=== PATIENT | female | born 1975 | race Caucasian/White ===

== ENCOUNTER 2019-01-02 11:14 | Outpatient (CLI) | payer OTHER ==
[2019-01-02 12:46] LABS: Hemoglobin 11.2 g/dL (12.0-16.0); Mean Corpuscular HGB CONC 32.1 g/dL (32.0-36.0); Mean Corpuscular Hemoglobin 25.2 pg (27.0-31.0); Mean Corpuscular Volume 78.7 fL (78.0-98.0); Mean Platelet Volume 11.8 fL (7.4-10.4); Platelet Count 198 thou/uL (130-400); RBC Distribution Width 17.7 % (11.5-14.5); Red Blood Cell (RBC) Count 4.43 mill/uL (4.20-5.40); White Blood Cell (WBC) Count 6.9 thou/uL (4.8-10.8)
[2019-01-02 13:13] LABS: PTT 31.7 SEC (22.9-36.1); Prothrombin Time 12.8 SEC (12.0-14.7)
[2019-01-02 13:16] LABS: BHCG - Serum Negative (NEGATIVE); Pregs Control Background? CLEAR/WHITE (CLR/WHITE); Pregs Control Bar Appear? YES (CONTROL BAR)
[2019-01-02 13:35] LABS: Anion Gap 12 mmol/L (10-20); BUN (Urea Nitrogen) 19 mg/dL (7.0-18.7); Calc. Creatinine Clearance 0 mL/min (70-130); Carbon Dioxide 23 mmol/L (22-29); Chloride 105 mmol/L (98-107); Estimated GFR-MDRD 73; Glucose 82 mg/dL (70-105); Potassium 4.3 mmol/L (3.5-5.1); Sodium 136 mmol/L (136-145)
== END 2019-01-02 11:15 | disposition home or self-care (01) ==
LOC: LABBT 11:14
PROVIDERS: ATTEND Internal Medicine Cardiovascular Disease
DX: Z01.818 Encounter for other preprocedural examination (principal); I47.1 Supraventricular tachycardia
CPT/HCPCS: 80048; 84703; 85027; 85610; 85730; 93005; 93010

== ENCOUNTER 2019-01-09 08:20 | Observation (INO) | payer OTHER ==
[2019-01-02 11:25] VITALS: BMI 31.3
[2019-01-09] MEDS ORDERED: Lidocaine 1% PF 5 ML VIAL ONE (11:45)
[2019-01-09] MEDS ORDERED: PROPOFOL 200 MG/20 ML VIAL ONE (11:45)
[2019-01-09] MEDS ORDERED: Heparin 30,000 units/30 ml VIAL ONE (11:45)
[2019-01-09] MEDS ORDERED: PHENYLEPHRINE-NS 100 MCG/ML 10 ML SYRINGE ONE (11:45)
[2019-01-09] MEDS ORDERED: Heparin 25,000 units/D5W 500 ML ONE (12:17)
[2019-01-09] MEDS ORDERED: Heparin 10,000 UNITS/1 ML VIAL ONE ×3 (12:17→13:49)
[2019-01-09] MEDS ORDERED: Lidocaine 1% (PF) 30 ML VIAL ONE (12:24)
[2019-01-09] MEDS ORDERED: Fentanyl 100 MCG/2 ML VIAL ONE (12:31)
[2019-01-09] MEDS ORDERED: Midazolam HCl 2 mg/2 ml Vial ONE (12:31)
[2019-01-09] MEDS ORDERED: Isoproterenol 0.2 MG/1 ML AMP ONE (14:06)
[2019-01-09] MEDS ORDERED: Propofol 500 MG/50 ML VIAL ONE (14:19)
[2019-01-09] MEDS ORDERED: Protamine Sulfate 50 MG/5 ML VIAL ONE (14:53)
[2019-01-09] MEDS ORDERED: Acetaminophen/Codeine 30-300mg Tablet PO PRN ×2 (15:45)
--- NOTE | 2019-01-09 15:51 | OP ---
DATE OF PROCEDURE: 01/09/2019 PROCEDURE PERFORMED: Electrophysiology study and radiofrequency ablation. REASON FOR PROCEDURE: Ms. Patino is a 43-year-old woman with history of recurrent palpitations. EKG documented supraventricular tachycardia and she is here for EP study and ablation procedure. DESCRIPTION OF PROCEDURE: The patient received deep sedation by Anesthesia specialist. After adequate level of sedation achieved, the left and right femoral veins were prepped, draped, and anesthetized using subcutaneous lidocaine. On the left side, a 6 and 8-Eritrean sheath was used to advance an octapolar and decapolar catheter to the right atrium, right ventricle, His bundle, and CS position. Pacing mapping and recording were performed in each location with the following findings. Baseline rhythm was sinus rhythm at cycle length of 885 milliseconds, GA 123 milliseconds, QRS 56 milliseconds, QT 371 milliseconds, AH 45 milliseconds, HV 63 milliseconds. AV Wenckebach cycle length was measured at 300 milliseconds. Retrograde Wenckebach cycle was 340 milliseconds. With rapid RV pacing eccentric atrial activation seen suggestive of accessory pathway. Also with burst atrial and ventricular pacing, we were able to induce a narrow complex supraventricular tachycardia with excellent VA conduction. Ventricular overdrive pacing terminated the arrhythmias, but clearly the activation pattern was consistent with AV reentrant tachycardia utilizing an accessory pathway adjacent to the CS 3, 4 electrodes. At that point, the right femoral vein was also accessed under ultrasound guidance and 11-Eritrean sheath as well as SL1 sheath was introduced. An intracardiac echo probe was advanced to the right atrium to monitor pericardial space catheter manipulation and transseptal procedure throughout the case. After IV heparin was administered, which was also given in bolus and drip form to keep ACT over 350, a transseptal puncture was performed under intracardiac echocardiogram as well as fluoroscopic guidance. Through the SL1 sheath, a ThermoCool SFST catheter was advanced to the left atrium. 3D map of the left atrium was obtained and SVT as well. The earliest activation was again measured in the mid posterolateral area of the mitral valve annulus at the earliest activation, also where accessory pathway potential were present. Radiofrequency application was delivered, total of one ablation lesion at 1 minute and 8 seconds were delivered. The first and second eccentric VA conduction seized and normal VA conduction with intermittent VA block was noted. Following that, burst ventricular pacing did not reinduce the arrhythmia and Isuprel was initiated. RV pacing showed central retrograde atrial activation. VA block was noted about 250 milliseconds. No eccentric conduction was seen anymore. The SVT was not re-inducible. Throughout the case, catheter manipulation and burst atrial pacing did induce atrial fibrillation as well. The patient required occasional cardioversion. In the end of the case, on Isuprel, the AV Wenckebach cycle was down to 230 milliseconds and we were not able to induce neither SVT or atrial fibrillation. The intracardiac echo probe did not reveal effusion. Cardiac silhouette did not change. The catheter was removed from the left atrium and the body. The protamine was administered to reverse heparin effect. Basket closure was done. CONCLUSION: 1. 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 2. Radiofrequency ablation from terminated eccentric VA conduction and also made the SVC non-inducible. 3. Atrial fibrillation noted throughout the case repeatedly which persisted and required cardioversion, but was not re-inducible end of the case. 4. Normal sinus and AV juliette function and His-Purkinje function noted. 5. No evidence of dual AV juliette physiology. 6. No additional pathways are detected. PLAN: Taper off AV juliette agents, low-dose aspirin. Monitor for recurrent atrial arrhythmias. Job ID: [id number] [facility]
[2019-01-09] MEDS ORDERED: Bupropion 150 MG XL TAB PO SCH (21:00)
[2019-01-09] MEDS ORDERED: Multivit, Therapeutic 1 TAB PO SCH (21:00)
[2019-01-10 08:23] VITALS: BP 108/62; TEMP 98.5
--- NOTE | 2019-01-10 17:31 | EKG ---
Test Reason : Blood Pressure : / mmHG Vent. Rate : 063 BPM Atrial Rate : 063 BPM P-R Int : 140 ms QRS Dur : 086 ms QT Int : 430 ms P-R-T Axes : 052 000 007 degrees QTc Int : 440 ms Normal sinus rhythm with sinus arrhythmia T wave abnormality, consider anterior ischemia Abnormal ECG Confirmed by TJ PEDROZA ([id number]) on 01/10/2019 5:30:53 PM Referred By: Confirmed By:TJ PEDROZA
--- NOTE | 2019-01-10 17:40 | EKG ---
Test Reason : Blood Pressure : / mmHG Vent. Rate : 066 BPM Atrial Rate : 066 BPM P-R Int : 130 ms QRS Dur : 086 ms QT Int : 418 ms P-R-T Axes : 038 006 013 degrees QTc Int : 438 ms Normal sinus rhythm Normal ECG Confirmed by TJ PEDROZA ([id number]) on 01/10/2019 5:40:26 PM Referred By: NARENDRA Confirmed By:TJ PEDROZA
--- NOTE | 2019-01-11 05:04 | DIS ---
DATE OF ADMISSION: 01/09/2019 DATE OF DISCHARGE: 01/10/2019 This is Catherine Akbar NP dictating a report for Espinoza King MD. FINAL HOSPITAL DISCHARGE DIAGNOSES: 1. 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 2. Preserved left ventricular ejection fraction. PROCEDURES: On 01/09/2019, the patient underwent electrophysiology study and radiofrequency ablation of a posterolateral accessory pathway. SUMMARY: Jake Patino is a 43-year-old female patient, who has a history of recurrent supraventricular tachycardia with sudden onset/offset. She was recommended for catheter ablation. This was accomplished by Dr. King without incident. Postprocedure, the patient was feeling well. We stopped her Toprol. Her EKG demonstrated normal sinus rhythm. PHYSICAL EXAMINATION: GENERAL: On discharge, the patient is well appearing, in no apparent distress. VITAL SIGNS: Blood pressure 107/52, pulse 67, respirations 16. NECK: Supple without jugular venous distention. RESPIRATORY: Breath sounds clear to auscultation bilaterally. Respirations are unlabored with bilateral excursion. CARDIOVASCULAR: Regular rate and rhythm. S1, S2. ABDOMEN: Soft, nontender. Bowel sounds are normoactive. Hepatojugular reflux is negative. EXTREMITIES: No lower extremity edema noted. SKIN: Right and left groin sites were clean dry. There was no hematoma. DISCHARGE MEDICATIONS: 1. Wellbutrin 100 mg daily. 2. Ibuprofen 600 mg p.o. t.i.d. p.r.n. chest discomfort for 3 days. DISPOSITION: Home. PROGNOSIS: Good. FOLLOWUP TEST AND APPOINTMENTS: Dr. Espinoza King in 6 weeks. DISCHARGE INSTRUCTIONS: The patient was encouraged to avoid strenuous activity and lifting more than 10 pounds for 7 days. She should notify our office regarding chest discomfort, palpitations, presyncope, or syncope. Job ID: [id number]
== END 2019-01-10 11:00 | disposition home or self-care (01) ==
LOC: CCL 08:20 → 2SW 15:05
PROVIDERS: ADMIT Internal Medicine Cardiovascular Disease; ATTEND Internal Medicine Cardiovascular Disease
PROC: 4A023FZ Measurement of Cardiac Rhythm, Percutaneous Approach (ICD-10-PCS; principal; 2019-01-10)
PROC: 4A0234Z Measurement of Cardiac Electrical Activity, Percutaneous Approach (ICD-10-PCS; 2019-01-10)
PROC: 02583ZZ Destruction of Conduction Mechanism, Percutaneous Approach (ICD-10-PCS; 2019-01-10)
DX: I47.1 Supraventricular tachycardia (principal); I48.1 Persistent atrial fibrillation; Z87.891 Personal history of nicotine dependence; Z91.048 Other nonmedicinal substance allergy status
CPT/HCPCS: 76942; 85347; 93005; 93010; 93462; 93613; 93623; 93653; 93662; C1730; C1732; C1759; C1769; G0378; J1644; J2001; J2250; J2704; J2720; J3010